=== PATIENT | male | born 1945 | race Caucasian/White ===

== ENCOUNTER 2019-12-12 20:13 | Inpatient (IN) ==
[2019-12-12] MEDS ORDERED: Isovue-370 500 ML BOTTLE IVP ONE (20:31)
[2019-12-12 21:24] LABS: Basophils % 0.5 %; Eosinophils % 0.2 %; Hematocrit 34.7 % (37.5-50.1); Hemoglobin 11.2 g/dL (12.9-16.9); Immature Granulocytes % 0.2 % (0-4); Lymphocytes # 1.1 K/mcL (0.6-4.6); Mean Corpuscular HGB Conc 32.3 g/dL (31.6-35.5); Mean Corpuscular Hemoglobin 31.1 pg (28.0-33.3); Mean Corpuscular Volume 96.4 fL (83.0-100.0); Monocytes # 0.4 K/mcL (0.0-1.3); Monocytes % 8.9 %; Neutrophils # 2.6 K/mcL (1.6-8.9); Platelet Count 167 K/mcL (140-400); Red Cell Distribution Width 15.1 % (11.5-14.5); Segmented Neutrophils % 63.2 %
[2019-12-12 21:28] LABS: INR 1.1; Prothrombin Time 12.7 Seconds (9.4-12.1)
[2019-12-12 21:31] LABS: Activated Partial Thrombo Time 24.5 Seconds (26.0-36.0)
[2019-12-12 21:49] LABS: Alanine Aminotransferase 21 Units/L (7-52); Albumin 3.3 g/dL (3.5-5.7); Albumin/Globulin Ratio 1.1 (1.1-2.2); Alkaline Phosphatase 58 Units/L (34-104); Aspartate Amino Transferase 49 Units/L (13-39); BUN/Creatinine Ratio 25 (6-26); Bilirubin,Direct 0.2 mg/dL (0.0-0.2); Bilirubin,Indirect 0.4 mg/dL (0.0-1.0); Bilirubin,Total 0.6 mg/dL (0.3-1.0); Blood Urea Nitrogen 24 mg/dL (8-23); C-Reactive Protein 69 mg/L (Less than 10); Calcium 8.2 mg/dL (8.6-10.3); Carbon Dioxide 27 mEq/L (23-29); Chloride 97 mEq/L (98-107); Globulin 3.1 g/dL (2.4-3.5); Glucose 88 mg/dL (70-105); Lactate Dehydrogenase 308 Units/L (140-271); Magnesium 1.9 mg/dL (1.6-2.6); Osmolality,Calculated 281 (280-300); Phosphorous 2.8 mg/dL (2.7-4.5); Potassium 3.7 mEq/L (3.5-5.1); Sodium 134 mEq/L (136-145); Total Protein 6.4 g/dL (6.4-8.9); Troponin I 0.06 ng/mL (< 0.04); eGFR For African Americans > 60 (> 60); eGFR For Non-African Americans > 60 (> 60)
[2019-12-12 22:09] LABS: Ferritin 482 ng/mL (20-250)
[2019-12-13] MEDS ORDERED: Naloxone 0.4 MG/ML INJ IVP PRN (02:20)
[2019-12-13] MEDS ORDERED: Ondansetron 4 MG/2 ML VIAL IVP PRN (02:20)
[2019-12-13] MEDS ORDERED: D5% in Water 1,000 ML IVC PRN (02:22)
[2019-12-13] MEDS ORDERED: Dextrose Gel 15 GM/37.5 ML TUBE PO PRN ×2 (02:22)
[2019-12-13] MEDS ORDERED: *HR* Dextrose 50 % in Water (Vial) 50 ML VIAL IVP PRN (02:22)
[2019-12-13] MEDS: *HR* Enoxaparin 40 MG/0.4 ML SYRINGE SQ SCH (05:27)
[2019-12-13] MEDS: Acetaminophen 325 MG TABLET PO PRN (05:27)
[2019-12-13] MEDS: Insulin LISPRO 300 UNITS/3 ML VIAL SQ SCH ×4 (08:39→21:04)
[2019-12-13] MEDS: Doxycycline 100 MG CAPSULE PO SCH ×2 (08:47→21:26)
[2019-12-13] MEDS: Magnesium Oxide 400 MG TABLET PO SCH (08:47)
[2019-12-13] MEDS: Pyridoxine (B-6) 50 MG TABLET PO SCH (08:47)
[2019-12-13] MEDS: Aspirin Enteric Coated 81 MG Tablet PO SCH (08:47)
[2019-12-13] MEDS: polyethylene glycoL 3350 17 GM POWD.PACK PO SCH (08:48)
[2019-12-13] MEDS: Dexamethasone 4 MG/ML VIAL IVP SCH (08:48)
[2019-12-13] MEDS: cefTRIAXone 1,000 MG in Water for inj. (sterile) 10 ML IVP SCH (08:49)
[2019-12-13] MEDS: *HR* OxyCODONE Immed Rel 5 MG TABLET PO PRN ×3 (08:52→21:40)
[2019-12-13] MEDS ORDERED: atenoloL 50 MG TABLET PO SCH (09:00)
[2019-12-13 10:38] LABS: Basophils % 0.3 %; Eosinophils % 0.8 %; Hemoglobin 11.3 g/dL (12.9-16.9); Immature Granulocytes % 0.3 % (0-4); Mean Corpuscular HGB Conc 32.3 g/dL (31.6-35.5); Mean Corpuscular Hemoglobin 30.9 pg (28.0-33.3); Mean Corpuscular Volume 95.6 fL (83.0-100.0); Mean Platelet Volume 8.9 fL (9.4-12.4); Monocytes # 0.3 K/mcL (0.0-1.3); Neutrophils # 2.3 K/mcL (1.6-8.9); Platelet Count 168 K/mcL (140-400); Red Blood Count 3.66 M/mcL (4.19-5.50); Red Cell Distribution Width 15.1 % (11.5-14.5); Segmented Neutrophils % 63.6 %; White Blood Count 3.7 K/mcL (4.3-11.1)
[2019-12-13 11:41] LABS: BUN/Creatinine Ratio 27 (6-26); Blood Urea Nitrogen 21 mg/dL (8-23); Calcium 8.3 mg/dL (8.6-10.3); Carbon Dioxide 28 mEq/L (23-29); Chloride 99 mEq/L (98-107); Glucose 112 mg/dL (70-105); Magnesium 2.3 mg/dL (1.6-2.6); Osmolality,Calculated 282 (280-300); Phosphorous 2.7 mg/dL (2.7-4.5); Potassium 3.6 mEq/L (3.5-5.1); Sodium 134 mEq/L (136-145); Troponin I 0.09 ng/mL (< 0.04); eGFR For African Americans > 60 (> 60); eGFR For Non-African Americans > 60 (> 60)
[2019-12-13] MEDS: tiZANidine 4 MG TABLET PO SCH ×2 (15:47→21:27)
[2019-12-13] MEDS: Insulin DETEMIR 100 UNIT/ML X5UNITS SQ SCH (22:08)
[2019-12-14] MEDS: *HR* Enoxaparin 40 MG/0.4 ML SYRINGE SQ SCH (05:48)
[2019-12-14] MEDS: Insulin LISPRO 300 UNITS/3 ML VIAL SQ SCH ×4 (08:00→20:40)
[2019-12-14 08:36] LABS: Basophils % 0.1 %; Eosinophils % 0.1 %; Hematocrit 37.5 % (37.5-50.1); Hemoglobin 11.9 g/dL (12.9-16.9); Immature Granulocytes % 0.3 % (0-4); Lymphocytes # 1.1 K/mcL (0.6-4.6); Lymphocytes % 16.2 %; Mean Corpuscular HGB Conc 31.7 g/dL (31.6-35.5); Mean Corpuscular Hemoglobin 30.7 pg (28.0-33.3); Mean Corpuscular Volume 96.9 fL (83.0-100.0); Mean Platelet Volume 9.4 fL (9.4-12.4); Monocytes # 0.4 K/mcL (0.0-1.3); Monocytes % 5.3 %; Nucleated Red Blood Cells 0.4 /100 WBC (0); Platelet Count 200 K/mcL (140-400); Red Blood Count 3.87 M/mcL (4.19-5.50); Red Cell Distribution Width 14.6 % (11.5-14.5)
[2019-12-14 08:40] LABS: Neutrophils # 5.2 K/mcL (1.6-8.9); White Blood Count 6.7 K/mcL (4.3-11.1)
[2019-12-14 08:52] LABS: BUN/Creatinine Ratio 32 (6-26); Blood Urea Nitrogen 24 mg/dL (8-23); Calcium 8.8 mg/dL (8.6-10.3); Carbon Dioxide 30 mEq/L (23-29); Chloride 101 mEq/L (98-107); Glucose 94 mg/dL (70-105); Osmolality,Calculated 290 (280-300); Potassium 4.3 mEq/L (3.5-5.1); Sodium 138 mEq/L (136-145); eGFR For African Americans > 60 (> 60); eGFR For Non-African Americans > 60 (> 60)
[2019-12-14] MEDS: Aspirin Enteric Coated 81 MG Tablet PO SCH (10:03)
[2019-12-14] MEDS: Pyridoxine (B-6) 50 MG TABLET PO SCH (10:04)
[2019-12-14] MEDS: tiZANidine 4 MG TABLET PO SCH ×2 (10:04→20:39)
[2019-12-14] MEDS: Doxycycline 100 MG CAPSULE PO SCH ×2 (10:04→20:39)
[2019-12-14] MEDS: Magnesium Oxide 400 MG TABLET PO SCH (10:05)
[2019-12-14] MEDS: cefTRIAXone 1,000 MG in Water for inj. (sterile) 10 ML IVP SCH (10:05)
[2019-12-14] MEDS: Dexamethasone 4 MG/ML VIAL IVP SCH (10:05)
[2019-12-14] MEDS: polyethylene glycoL 3350 17 GM POWD.PACK PO SCH (10:06)
[2019-12-14] MEDS: Insulin DETEMIR 100 UNIT/ML X5UNITS SQ SCH (20:38)
[2019-12-14] MEDS: *HR* OxyCODONE Immed Rel 5 MG TABLET PO PRN (21:08)
[2019-12-15] MEDS: *HR* Enoxaparin 40 MG/0.4 ML SYRINGE SQ SCH (05:26)
[2019-12-15 07:12] LABS: Basophils % 0.2 %; Hematocrit 38.7 % (37.5-50.1); Hemoglobin 12.6 g/dL (12.9-16.9); Immature Granulocytes % 0.3 % (0-4); Lymphocytes # 1.3 K/mcL (0.6-4.6); Lymphocytes % 20.6 %; Mean Corpuscular HGB Conc 32.6 g/dL (31.6-35.5); Mean Corpuscular Hemoglobin 31.3 pg (28.0-33.3); Mean Corpuscular Volume 96.3 fL (83.0-100.0); Mean Platelet Volume 9.1 fL (9.4-12.4); Monocytes # 0.3 K/mcL (0.0-1.3); Neutrophils # 4.7 K/mcL (1.6-8.9); Platelet Count 217 K/mcL (140-400); Red Blood Count 4.02 M/mcL (4.19-5.50); Red Cell Distribution Width 14.7 % (11.5-14.5); Segmented Neutrophils % 73.9 %; White Blood Count 6.4 K/mcL (4.3-11.1)
[2019-12-15 07:29] LABS: BUN/Creatinine Ratio 28 (6-26); Blood Urea Nitrogen 20 mg/dL (8-23); Calcium 9.2 mg/dL (8.6-10.3); Carbon Dioxide 30 mEq/L (23-29); Chloride 102 mEq/L (98-107); Glucose 84 mg/dL (70-105); Osmolality,Calculated 288 (280-300); Potassium 4.6 mEq/L (3.5-5.1); Sodium 138 mEq/L (136-145); eGFR For African Americans > 60 (> 60); eGFR For Non-African Americans > 60 (> 60)
[2019-12-15] MEDS: Insulin LISPRO 300 UNITS/3 ML VIAL SQ SCH ×4 (08:44→22:08)
[2019-12-15] MEDS: Doxycycline 100 MG CAPSULE PO SCH ×2 (09:51→22:10)
[2019-12-15] MEDS: Aspirin Enteric Coated 81 MG Tablet PO SCH (09:51)
[2019-12-15] MEDS: Pyridoxine (B-6) 50 MG TABLET PO SCH ×2 (09:52→22:16)
[2019-12-15] MEDS: tiZANidine 4 MG TABLET PO SCH ×2 (09:52→22:15)
[2019-12-15] MEDS: Magnesium Oxide 400 MG TABLET PO SCH ×2 (09:54→22:10)
[2019-12-15] MEDS: polyethylene glycoL 3350 17 GM POWD.PACK PO SCH (09:55)
[2019-12-15] MEDS: Dexamethasone 4 MG/ML VIAL IVP SCH (09:59)
[2019-12-15] MEDS: cefTRIAXone 1,000 MG in Water for inj. (sterile) 10 ML IVP SCH (10:00)
[2019-12-15] MEDS: Torsemide 20 MG TABLET PO SCH (17:00)
[2019-12-15] MEDS: Budesonide/Formoterol 160/4.5 1 PUFF INH IH SCH (20:45)
[2019-12-15] MEDS ORDERED: Insulin DETEMIR 100 UNIT/ML X5UNITS SQ SCH (21:00)
[2019-12-16] MEDS: *HR* OxyCODONE Immed Rel 5 MG TABLET PO PRN (03:32)
[2019-12-16] MEDS ORDERED: *HR* OxyCODONE Immed Rel 5 MG TABLET PO PRN (03:52)
[2019-12-16] MEDS: *HR* Enoxaparin 40 MG/0.4 ML SYRINGE SQ SCH (06:10)
[2019-12-16] MEDS: Budesonide/Formoterol 160/4.5 1 PUFF INH IH SCH ×2 (07:48→22:03)
[2019-12-16] MEDS: polyethylene glycoL 3350 17 GM POWD.PACK PO SCH (08:09)
[2019-12-16] MEDS: Insulin LISPRO 300 UNITS/3 ML VIAL SQ SCH ×4 (08:09→21:32)
[2019-12-16] MEDS: Cyanocobalamin (B-12) 1,000 MCG TABLET PO SCH (08:22)
[2019-12-16] MEDS: Venlafaxine XR (24 HR) 150 MG CAP.ER.24H PO SCH (08:22)
[2019-12-16] MEDS: Magnesium Oxide 400 MG TABLET PO SCH ×2 (08:22→21:42)
[2019-12-16] MEDS: Aspirin Enteric Coated 81 MG Tablet PO SCH (08:23)
[2019-12-16] MEDS: Pyridoxine (B-6) 50 MG TABLET PO SCH ×2 (08:23→21:42)
[2019-12-16] MEDS: Torsemide 20 MG TABLET PO SCH (08:23)
[2019-12-16] MEDS: Cholecalciferol (D-3) 1,000 UNIT (25MCG) TABLET PO SCH (08:23)
[2019-12-16] MEDS: Doxycycline 100 MG CAPSULE PO SCH ×2 (08:23→21:43)
[2019-12-16] MEDS: tiZANidine 4 MG TABLET PO SCH ×2 (08:24→21:42)
[2019-12-16] MEDS: cefTRIAXone 1,000 MG in Water for inj. (sterile) 10 ML IVP SCH (08:26)
[2019-12-16] MEDS: Dexamethasone 4 MG/ML VIAL IVP SCH (08:27)
[2019-12-16] MEDS ORDERED: Torsemide 20 MG TABLET PO SCH (09:00)
[2019-12-16 10:37] LABS: Basophils % 0.2 %; Hematocrit 40.1 % (37.5-50.1); Hemoglobin 13.2 g/dL (12.9-16.9); Immature Granulocytes % 0.5 % (0-4); Lymphocytes # 0.6 K/mcL (0.6-4.6); Lymphocytes % 9.2 %; Mean Corpuscular HGB Conc 32.9 g/dL (31.6-35.5); Mean Corpuscular Hemoglobin 30.9 pg (28.0-33.3); Mean Corpuscular Volume 93.9 fL (83.0-100.0); Mean Platelet Volume 9.1 fL (9.4-12.4); Monocytes # 0.3 K/mcL (0.0-1.3); Monocytes % 3.8 %; Neutrophils # 5.6 K/mcL (1.6-8.9); Platelet Count 274 K/mcL (140-400); Red Blood Count 4.27 M/mcL (4.19-5.50); Segmented Neutrophils % 86.3 %; White Blood Count 6.5 K/mcL (4.3-11.1)
[2019-12-16 10:57] LABS: BUN/Creatinine Ratio 26 (6-26); Blood Urea Nitrogen 23 mg/dL (8-23); Calcium 8.8 mg/dL (8.6-10.3); Carbon Dioxide 27 mEq/L (23-29); Chloride 98 mEq/L (98-107); Glucose 160 mg/dL (70-105); Osmolality,Calculated 289 (280-300); Sodium 136 mEq/L (136-145); eGFR For African Americans > 60 (> 60); eGFR For Non-African Americans > 60 (> 60)
[2019-12-17] MEDS: *HR* Enoxaparin 40 MG/0.4 ML SYRINGE SQ SCH (05:24)
[2019-12-17 06:32] LABS: BUN/Creatinine Ratio 33 (6-26); Blood Urea Nitrogen 33 mg/dL (8-23); Calcium 8.7 mg/dL (8.6-10.3); Carbon Dioxide 20 mEq/L (23-29); Chloride 99 mEq/L (98-107); Glucose 94 mg/dL (70-105); Osmolality,Calculated 285 (280-300); Potassium 4.8 mEq/L (3.5-5.1); Sodium 134 mEq/L (136-145); eGFR For African Americans > 60 (> 60); eGFR For Non-African Americans > 60 (> 60)
[2019-12-17 06:48] LABS: Basophils % 0.1 %; Hematocrit 44.1 % (37.5-50.1); Hemoglobin 14.6 g/dL (12.9-16.9); Immature Granulocytes % 0.7 % (0-4); Lymphocytes # 0.8 K/mcL (0.6-4.6); Lymphocytes % 10.8 %; Mean Corpuscular HGB Conc 33.1 g/dL (31.6-35.5); Mean Corpuscular Hemoglobin 31.3 pg (28.0-33.3); Mean Corpuscular Volume 94.6 fL (83.0-100.0); Monocytes # 0.4 K/mcL (0.0-1.3); Monocytes % 4.7 %; Neutrophils # 6.4 K/mcL (1.6-8.9); Platelet Count 284 K/mcL (140-400); Red Blood Count 4.66 M/mcL (4.19-5.50); Segmented Neutrophils % 83.7 %; White Blood Count 7.7 K/mcL (4.3-11.1)
[2019-12-17] MEDS: Budesonide/Formoterol 160/4.5 1 PUFF INH IH SCH ×2 (08:04→19:58)
[2019-12-17] MEDS: Insulin LISPRO 300 UNITS/3 ML VIAL SQ SCH ×4 (08:17→22:21)
[2019-12-17] MEDS: Cyanocobalamin (B-12) 1,000 MCG TABLET PO SCH (08:21)
[2019-12-17] MEDS: tiZANidine 4 MG TABLET PO SCH ×2 (08:21→22:20)
[2019-12-17] MEDS: Cholecalciferol (D-3) 1,000 UNIT (25MCG) TABLET PO SCH (08:21)
[2019-12-17] MEDS: Pyridoxine (B-6) 50 MG TABLET PO SCH ×2 (08:22→22:20)
[2019-12-17] MEDS: cefTRIAXone 1,000 MG in Water for inj. (sterile) 10 ML IVP SCH (08:22)
[2019-12-17] MEDS: Venlafaxine XR (24 HR) 150 MG CAP.ER.24H PO SCH (08:23)
[2019-12-17] MEDS: Doxycycline 100 MG CAPSULE PO SCH ×2 (08:23→22:21)
[2019-12-17] MEDS: Aspirin Enteric Coated 81 MG Tablet PO SCH (08:23)
[2019-12-17] MEDS: Magnesium Oxide 400 MG TABLET PO SCH ×2 (08:23→22:21)
[2019-12-17] MEDS: Torsemide 20 MG TABLET PO SCH (08:23)
[2019-12-17] MEDS: Dexamethasone 4 MG/ML VIAL IVP SCH (08:24)
[2019-12-17] MEDS: Insulin DETEMIR 100 UNIT/ML X5UNITS SQ SCH (08:25)
[2019-12-17] MEDS: polyethylene glycoL 3350 17 GM POWD.PACK PO SCH (08:58)
[2019-12-17] MEDS: Spironolactone 25 MG TABLET PO SCH (12:31)
[2019-12-17] MEDS: Furosemide 40 MG/4 ML VIAL IVP SCH (12:37)
[2019-12-17] MEDS: Melatonin 3 MG TABLET PO SCH (22:19)
[2019-12-18] MEDS: Budesonide/Formoterol 160/4.5 1 PUFF INH IH SCH ×2 (07:49→20:15)
[2019-12-18] MEDS: *HR* Enoxaparin 40 MG/0.4 ML SYRINGE SQ SCH (10:27)
[2019-12-18] MEDS: Aspirin Enteric Coated 81 MG Tablet PO SCH (10:28)
[2019-12-18] MEDS: Insulin LISPRO 300 UNITS/3 ML VIAL SQ SCH ×4 (10:28→21:50)
[2019-12-18] MEDS: Spironolactone 25 MG TABLET PO SCH (10:28)
[2019-12-18] MEDS: Venlafaxine XR (24 HR) 150 MG CAP.ER.24H PO SCH (10:29)
[2019-12-18] MEDS: Magnesium Oxide 400 MG TABLET PO SCH ×2 (10:30→21:54)
[2019-12-18] MEDS: polyethylene glycoL 3350 17 GM POWD.PACK PO SCH (10:30)
[2019-12-18] MEDS: Cholecalciferol (D-3) 1,000 UNIT (25MCG) TABLET PO SCH (10:31)
[2019-12-18] MEDS: tiZANidine 4 MG TABLET PO SCH ×2 (10:31→21:53)
[2019-12-18] MEDS: Pyridoxine (B-6) 50 MG TABLET PO SCH ×2 (10:31→21:54)
[2019-12-18] MEDS: Multivit/Ca/Min/Fe/FA 1 TAB TABLET PO SCH (10:31)
[2019-12-18] MEDS: Cyanocobalamin (B-12) 1,000 MCG TABLET PO SCH (10:31)
[2019-12-18] MEDS: Insulin DETEMIR 100 UNIT/ML X5UNITS SQ SCH (11:09)
[2019-12-18] MEDS: Furosemide 40 MG/4 ML VIAL IVP SCH (11:15)
[2019-12-18] MEDS: Dexamethasone 4 MG/ML VIAL IVP SCH (11:15)
[2019-12-18 14:16] LABS: Basophils % 0.1 %; Hematocrit 41.2 % (37.5-50.1); Hemoglobin 13.7 g/dL (12.9-16.9); Immature Granulocytes % 0.5 % (0-4); Lymphocytes # 0.6 K/mcL (0.6-4.6); Lymphocytes % 7.4 %; Mean Corpuscular HGB Conc 33.3 g/dL (31.6-35.5); Mean Corpuscular Hemoglobin 31.6 pg (28.0-33.3); Mean Corpuscular Volume 95.2 fL (83.0-100.0); Mean Platelet Volume 9.1 fL (9.4-12.4); Monocytes # 0.3 K/mcL (0.0-1.3); Monocytes % 3.5 %; Neutrophils # 7.1 K/mcL (1.6-8.9); Platelet Count 332 K/mcL (140-400); Red Blood Count 4.33 M/mcL (4.19-5.50); Red Cell Distribution Width 14.6 % (11.5-14.5); Segmented Neutrophils % 88.5 %
[2019-12-18 14:39] LABS: BUN/Creatinine Ratio 38 (6-26); Blood Urea Nitrogen 39 mg/dL (8-23); Calcium 8.7 mg/dL (8.6-10.3); Carbon Dioxide 28 mEq/L (23-29); Chloride 96 mEq/L (98-107); Glucose 171 mg/dL (70-105); Magnesium 2.4 mg/dL (1.6-2.6); Osmolality,Calculated 291 (280-300); Potassium 4.2 mEq/L (3.5-5.1); Sodium 134 mEq/L (136-145); eGFR For African Americans > 60 (> 60); eGFR For Non-African Americans > 60 (> 60)
[2019-12-18] MEDS: Melatonin 3 MG TABLET PO SCH (21:54)
[2019-12-18] MEDS ORDERED: 0.9 % Sodium Chloride 250 ML ONE (23:26)
[2019-12-19 03:37] LABS: Basophils % 0.1 %; Hematocrit 38.9 % (37.5-50.1); Hemoglobin 12.5 g/dL (12.9-16.9); Immature Granulocytes % 0.7 % (0-4); Lymphocytes # 0.7 K/mcL (0.6-4.6); Lymphocytes % 9.3 %; Mean Corpuscular HGB Conc 32.1 g/dL (31.6-35.5); Mean Corpuscular Hemoglobin 30.7 pg (28.0-33.3); Mean Corpuscular Volume 95.6 fL (83.0-100.0); Mean Platelet Volume 9.2 fL (9.4-12.4); Monocytes # 0.3 K/mcL (0.0-1.3); Neutrophils # 6.5 K/mcL (1.6-8.9); Platelet Count 312 K/mcL (140-400); Red Blood Count 4.07 M/mcL (4.19-5.50); Red Cell Distribution Width 14.7 % (11.5-14.5); Segmented Neutrophils % 85.9 %; White Blood Count 7.5 K/mcL (4.3-11.1)
[2019-12-19 03:54] LABS: BUN/Creatinine Ratio 40 (6-26); Blood Urea Nitrogen 36 mg/dL (8-23); Calcium 8.9 mg/dL (8.6-10.3); Carbon Dioxide 32 mEq/L (23-29); Chloride 96 mEq/L (98-107); Glucose 120 mg/dL (70-105); Osmolality,Calculated 294 (280-300); Potassium 4.2 mEq/L (3.5-5.1); Sodium 137 mEq/L (136-145); eGFR For African Americans > 60 (> 60); eGFR For Non-African Americans > 60 (> 60)
[2019-12-19] MEDS: *HR* Enoxaparin 40 MG/0.4 ML SYRINGE SQ SCH (05:50)
[2019-12-19 07:46] LABS: Magnesium 2.7 mg/dL (1.6-2.6)
[2019-12-19] MEDS: Insulin LISPRO 300 UNITS/3 ML VIAL SQ SCH ×4 (07:47→20:22)
[2019-12-19] MEDS: tiZANidine 4 MG TABLET PO SCH ×2 (07:48→20:28)
[2019-12-19] MEDS: Pyridoxine (B-6) 50 MG TABLET PO SCH ×2 (07:48→20:27)
[2019-12-19] MEDS: Dexamethasone 4 MG/ML VIAL IVP SCH (07:48)
[2019-12-19] MEDS: polyethylene glycoL 3350 17 GM POWD.PACK PO SCH (07:48)
[2019-12-19] MEDS: Multivit/Ca/Min/Fe/FA 1 TAB TABLET PO SCH (07:48)
[2019-12-19] MEDS: Aspirin Enteric Coated 81 MG Tablet PO SCH (07:48)
[2019-12-19] MEDS: Venlafaxine XR (24 HR) 150 MG CAP.ER.24H PO SCH (07:48)
[2019-12-19] MEDS: Cholecalciferol (D-3) 1,000 UNIT (25MCG) TABLET PO SCH (07:48)
[2019-12-19] MEDS: Magnesium Oxide 400 MG TABLET PO SCH (07:48)
[2019-12-19] MEDS: Cyanocobalamin (B-12) 1,000 MCG TABLET PO SCH (07:49)
[2019-12-19] MEDS: Spironolactone 25 MG TABLET PO SCH (07:49)
[2019-12-19] MEDS: Furosemide 40 MG/4 ML VIAL IVP SCH ×2 (07:49→20:29)
[2019-12-19] MEDS: Insulin DETEMIR 100 UNIT/ML X5UNITS SQ SCH (07:50)
[2019-12-19] MEDS: Budesonide/Formoterol 160/4.5 1 PUFF INH IH SCH ×2 (11:06→20:12)
[2019-12-19 13:19] LABS: Fibrinogen 538 mg/dL (169-393)
[2019-12-19 13:22] LABS: D-Dimer 2149 ng/mLFEU (0-500)
[2019-12-19] MEDS: Melatonin 3 MG TABLET PO SCH (20:28)
[2019-12-19] MEDS: *HR* OxyCODONE Immed Rel 5 MG TABLET PO PRN (21:33)
[2019-12-20 03:44] LABS: Basophils % 0.1 %; Eosinophils % 0.2 %; Hematocrit 41.4 % (37.5-50.1); Hemoglobin 13.5 g/dL (12.9-16.9); Immature Granulocytes % 0.5 % (0-4); Lymphocytes # 0.7 K/mcL (0.6-4.6); Lymphocytes % 6.2 %; Mean Corpuscular HGB Conc 32.6 g/dL (31.6-35.5); Mean Platelet Volume 8.9 fL (9.4-12.4); Monocytes # 0.3 K/mcL (0.0-1.3); Monocytes % 3.1 %; Neutrophils # 9.5 K/mcL (1.6-8.9); Platelet Count 357 K/mcL (140-400); Red Blood Count 4.36 M/mcL (4.19-5.50); Red Cell Distribution Width 13.8 % (11.5-14.5); Segmented Neutrophils % 89.9 %; White Blood Count 10.5 K/mcL (4.3-11.1)
[2019-12-20 03:52] LABS: BUN/Creatinine Ratio 37 (6-26); Blood Urea Nitrogen 34 mg/dL (8-23); Carbon Dioxide 34 mEq/L (23-29); Chloride 96 mEq/L (98-107); Glucose 105 mg/dL (70-105); Magnesium 2.3 mg/dL (1.6-2.6); Osmolality,Calculated 284 (280-300); Potassium 4.1 mEq/L (3.5-5.1); Sodium 133 mEq/L (136-145); eGFR For African Americans > 60 (> 60); eGFR For Non-African Americans > 60 (> 60)
[2019-12-20] MEDS ORDERED: *HR* Metoprolol 5 MG/5 ML VIAL IVP ONE (04:53)
[2019-12-20 05:10] LABS: Phosphorous 3.2 mg/dL (2.7-4.5)
[2019-12-20] MEDS: *HR* Enoxaparin 40 MG/0.4 ML SYRINGE SQ SCH (06:30)
[2019-12-20] MEDS: Budesonide/Formoterol 160/4.5 1 PUFF INH IH SCH ×3 (07:47→21:57)
[2019-12-20] MEDS: Insulin LISPRO 300 UNITS/3 ML VIAL SQ SCH ×4 (08:00→22:36)
[2019-12-20] MEDS: Aspirin Enteric Coated 81 MG Tablet PO SCH (08:07)
[2019-12-20] MEDS: Azithromycin 250 MG TABLET PO SCH (08:07)
[2019-12-20] MEDS: Multivit/Ca/Min/Fe/FA 1 TAB TABLET PO SCH (08:07)
[2019-12-20] MEDS: Spironolactone 25 MG TABLET PO SCH (08:07)
[2019-12-20] MEDS: Cyanocobalamin (B-12) 1,000 MCG TABLET PO SCH (08:07)
[2019-12-20] MEDS: Cholecalciferol (D-3) 1,000 UNIT (25MCG) TABLET PO SCH (08:07)
[2019-12-20] MEDS: tiZANidine 4 MG TABLET PO SCH ×2 (08:08→21:30)
[2019-12-20] MEDS: Venlafaxine XR (24 HR) 150 MG CAP.ER.24H PO SCH (08:08)
[2019-12-20] MEDS: Pyridoxine (B-6) 50 MG TABLET PO SCH ×2 (08:08→21:30)
[2019-12-20] MEDS: Dexamethasone 4 MG/ML VIAL IVP SCH (08:08)
[2019-12-20] MEDS: polyethylene glycoL 3350 17 GM POWD.PACK PO SCH (08:10)
[2019-12-20] MEDS: Furosemide 40 MG/4 ML VIAL IVP SCH ×2 (08:10→21:29)
[2019-12-20] MEDS: Insulin DETEMIR 100 UNIT/ML X5UNITS SQ SCH (08:11)
[2019-12-20] MEDS: Ipratropium 1 PUFF INHALER IH SCH ×3 (16:19→21:56)
[2019-12-20] MEDS: Melatonin 3 MG TABLET PO SCH (21:29)
[2019-12-20] MEDS: *HR* OxyCODONE Immed Rel 5 MG TABLET PO PRN (21:55)
[2019-12-21 02:56] LABS: Basophils % 0.1 %; Eosinophils % 0.1 %; Hematocrit 39.2 % (37.5-50.1); Hemoglobin 13.1 g/dL (12.9-16.9); Immature Granulocytes % 0.7 % (0-4); Lymphocytes # 0.8 K/mcL (0.6-4.6); Lymphocytes % 7.2 %; Mean Corpuscular HGB Conc 33.4 g/dL (31.6-35.5); Mean Corpuscular Hemoglobin 32.2 pg (28.0-33.3); Mean Corpuscular Volume 96.3 fL (83.0-100.0); Mean Platelet Volume 9.2 fL (9.4-12.4); Monocytes # 0.4 K/mcL (0.0-1.3); Monocytes % 3.2 %; Neutrophils # 10.4 K/mcL (1.6-8.9); Platelet Count 408 K/mcL (140-400); Red Blood Count 4.07 M/mcL (4.19-5.50); Red Cell Distribution Width 14.2 % (11.5-14.5); Segmented Neutrophils % 88.7 %; White Blood Count 11.7 K/mcL (4.3-11.1)
[2019-12-21 03:10] LABS: BUN/Creatinine Ratio 46 (6-26); Blood Urea Nitrogen 45 mg/dL (8-23); Calcium 9.1 mg/dL (8.6-10.3); Carbon Dioxide 30 mEq/L (23-29); Chloride 96 mEq/L (98-107); Glucose 98 mg/dL (70-105); Magnesium 2.5 mg/dL (1.6-2.6); Osmolality,Calculated 294 (280-300); Potassium 4.4 mEq/L (3.5-5.1); Sodium 136 mEq/L (136-145); eGFR For African Americans > 60 (> 60); eGFR For Non-African Americans > 60 (> 60)
[2019-12-21] MEDS: Ipratropium 1 PUFF INHALER IH SCH ×4 (04:00→20:30)
[2019-12-21] MEDS: *HR* Enoxaparin 40 MG/0.4 ML SYRINGE SQ SCH (05:43)
[2019-12-21] MEDS: tiZANidine 4 MG TABLET PO SCH ×2 (07:49→22:07)
[2019-12-21] MEDS: Aspirin Enteric Coated 81 MG Tablet PO SCH (07:49)
[2019-12-21] MEDS: Cyanocobalamin (B-12) 1,000 MCG TABLET PO SCH (07:49)
[2019-12-21] MEDS: Multivit/Ca/Min/Fe/FA 1 TAB TABLET PO SCH (07:49)
[2019-12-21] MEDS: Venlafaxine XR (24 HR) 150 MG CAP.ER.24H PO SCH (07:49)
[2019-12-21] MEDS: Azithromycin 250 MG TABLET PO SCH (07:50)
[2019-12-21] MEDS: Pyridoxine (B-6) 50 MG TABLET PO SCH ×2 (07:50→22:07)
[2019-12-21] MEDS: Cholecalciferol (D-3) 1,000 UNIT (25MCG) TABLET PO SCH (07:50)
[2019-12-21] MEDS: Furosemide 40 MG/4 ML VIAL IVP SCH ×2 (07:51→22:05)
[2019-12-21] MEDS: Insulin DETEMIR 100 UNIT/ML X5UNITS SQ SCH (07:51)
[2019-12-21] MEDS: polyethylene glycoL 3350 17 GM POWD.PACK PO SCH (07:51)
[2019-12-21] MEDS: Dexamethasone 4 MG/ML VIAL IVP SCH (07:51)
[2019-12-21] MEDS: Insulin LISPRO 300 UNITS/3 ML VIAL SQ SCH ×4 (08:21→21:56)
[2019-12-21] MEDS: Budesonide/Formoterol 160/4.5 1 PUFF INH IH SCH ×2 (10:14→20:30)
[2019-12-21] MEDS: Melatonin 3 MG TABLET PO SCH (22:07)
[2019-12-21] MEDS: *HR* OxyCODONE Immed Rel 5 MG TABLET PO PRN (22:08)
[2019-12-22] MEDS: Haloperidol Lactate 5 MG/ML VIAL IVP PRN ×2 (00:20→05:37)
[2019-12-22] MEDS: Ipratropium 1 PUFF INHALER IH SCH ×4 (03:57→21:41)
[2019-12-22] MEDS: *HR* Enoxaparin 40 MG/0.4 ML SYRINGE SQ SCH (05:37)
[2019-12-22] MEDS ORDERED: *HR* Metoprolol 5 MG/5 ML VIAL IVP ONE (08:24)
[2019-12-22] MEDS: Metoprolol XL (24 HR) Succ 25 MG TAB.ER.24H PO SCH ×3 (08:33→16:17)
[2019-12-22] MEDS: Cyanocobalamin (B-12) 1,000 MCG TABLET PO SCH (08:37)
[2019-12-22] MEDS: Furosemide 40 MG/4 ML VIAL IVP SCH (08:38)
[2019-12-22] MEDS: Multivit/Ca/Min/Fe/FA 1 TAB TABLET PO SCH (08:39)
[2019-12-22] MEDS: Venlafaxine XR (24 HR) 150 MG CAP.ER.24H PO SCH (08:39)
[2019-12-22] MEDS: Cholecalciferol (D-3) 1,000 UNIT (25MCG) TABLET PO SCH (08:39)
[2019-12-22] MEDS: Aspirin Enteric Coated 81 MG Tablet PO SCH (08:39)
[2019-12-22] MEDS: tiZANidine 4 MG TABLET PO SCH ×2 (08:39→20:41)
[2019-12-22] MEDS: Pyridoxine (B-6) 50 MG TABLET PO SCH ×2 (08:39→20:41)
[2019-12-22] MEDS: Azithromycin 250 MG TABLET PO SCH (08:40)
[2019-12-22] MEDS: Dexamethasone 4 MG/ML VIAL IVP SCH (08:40)
[2019-12-22] MEDS: polyethylene glycoL 3350 17 GM POWD.PACK PO SCH (08:40)
[2019-12-22] MEDS: Insulin DETEMIR 100 UNIT/ML X5UNITS SQ SCH (08:42)
[2019-12-22] MEDS: Insulin LISPRO 300 UNITS/3 ML VIAL SQ SCH ×4 (08:44→20:34)
[2019-12-22] MEDS: *HR* HYDROmorphone (PF) 1 MG/ML SYRINGE IVP PRN (08:48)
[2019-12-22] MEDS ORDERED: Spironolactone 25 MG TABLET PO SCH (09:00)
[2019-12-22 09:01] LABS: Basophils % 0.1 %; Eosinophils % 0.1 %; Hematocrit 40.2 % (37.5-50.1); Hemoglobin 13.9 g/dL (12.9-16.9); Immature Granulocytes % 0.7 % (0-4); Lymphocytes # 0.4 K/mcL (0.6-4.6); Lymphocytes % 2.4 %; Mean Corpuscular HGB Conc 34.6 g/dL (31.6-35.5); Mean Corpuscular Hemoglobin 33.4 pg (28.0-33.3); Mean Corpuscular Volume 96.6 fL (83.0-100.0); Mean Platelet Volume 9.2 fL (9.4-12.4); Monocytes # 0.3 K/mcL (0.0-1.3); Monocytes % 2.1 %; Neutrophils # 14.1 K/mcL (1.6-8.9); Platelet Count 461 K/mcL (140-400); Red Blood Count 4.16 M/mcL (4.19-5.50); Red Cell Distribution Width 14.2 % (11.5-14.5); Segmented Neutrophils % 94.6 %; White Blood Count 14.9 K/mcL (4.3-11.1)
[2019-12-22 09:16] LABS: D-Dimer 2372 ng/mLFEU (0-500)
[2019-12-22] MEDS: Budesonide/Formoterol 160/4.5 1 PUFF INH IH SCH ×2 (09:49→21:44)
[2019-12-22] MEDS ORDERED: Acetaminophen IV 1,000 MG/100 ML INFUS..BTL IVPB ONE (10:36)
[2019-12-22 10:46] LABS: Fibrinogen 716 mg/dL (169-393)
[2019-12-22] MEDS ORDERED: *HR* Heparin 5,000 UNIT/ML VIAL IVP PRN ×2 (10:59)
[2019-12-22] MEDS ORDERED: *HR* Heparin 5,000 UNIT/ML VIAL IVP ONE (10:59)
[2019-12-22] MEDS: Heparin 25,000UNIT/250ML 1/2NS 25,000 UNIT/250 ML IV.SOLN IVC SCH (11:48)
[2019-12-22] MEDS: cefTRIAXone 1,000 MG in Water for inj. (sterile) 10 ML IVP SCH (11:52)
[2019-12-22 12:26] LABS: Calcium 9.1 mg/dL (8.6-10.3); Magnesium 2.6 mg/dL (1.6-2.6); Potassium 5.1 mEq/L (3.5-5.1)
[2019-12-22 12:43] LABS: Heparin anti-factor XA UFH 0.22 IU/mL (0.30-0.70); INR 1.3; Prothrombin Time 15.1 Seconds (9.4-12.1)
[2019-12-22 12:44] LABS: Activated Partial Thrombo Time 25.1 Seconds (26.0-36.0)
[2019-12-22 13:04] LABS: Hematocrit 36.6 % (37.5-50.1); Hemoglobin 12.5 g/dL (12.9-16.9); Mean Corpuscular HGB Conc 34.2 g/dL (31.6-35.5); Mean Corpuscular Hemoglobin 33.5 pg (28.0-33.3); Mean Corpuscular Volume 98.1 fL (83.0-100.0); Mean Platelet Volume 9.3 fL (9.4-12.4); Platelet Count 416 K/mcL (140-400); Red Blood Count 3.73 M/mcL (4.19-5.50); Red Cell Distribution Width 14.5 % (11.5-14.5); White Blood Count 14.8 K/mcL (4.3-11.1)
[2019-12-22] MEDS: Acetaminophen 325 MG TABLET PO PRN (15:23)
[2019-12-22] MEDS: Melatonin 3 MG TABLET PO SCH (20:40)
[2019-12-23] MEDS: Ipratropium 1 PUFF INHALER IH SCH ×4 (03:34→22:15)
[2019-12-23 05:21] LABS: Basophils % 0.1 %; Eosinophils % 0.1 %; Hemoglobin 12.4 g/dL (12.9-16.9); Immature Granulocytes % 0.4 % (0-4); Lymphocytes # 0.5 K/mcL (0.6-4.6); Lymphocytes % 3.2 %; Mean Corpuscular HGB Conc 36.5 g/dL (31.6-35.5); Mean Corpuscular Hemoglobin 35.9 pg (28.0-33.3); Mean Corpuscular Volume 98.6 fL (83.0-100.0); Mean Platelet Volume 9.1 fL (9.4-12.4); Monocytes # 0.3 K/mcL (0.0-1.3); Monocytes % 1.8 %; Neutrophils # 15.7 K/mcL (1.6-8.9); Platelet Count 449 K/mcL (140-400); Red Blood Count 3.45 M/mcL (4.19-5.50); Red Cell Distribution Width 14.9 % (11.5-14.5); Segmented Neutrophils % 94.4 %; White Blood Count 16.7 K/mcL (4.3-11.1)
[2019-12-23 05:35] LABS: D-Dimer 1318 ng/mLFEU (0-500); Fibrinogen 740 mg/dL (169-393)
[2019-12-23 05:42] LABS: BUN/Creatinine Ratio 62 (6-26); Blood Urea Nitrogen 71 mg/dL (8-23); Calcium 8.9 mg/dL (8.6-10.3); Carbon Dioxide 33 mEq/L (23-29); Chloride 95 mEq/L (98-107); Glucose 99 mg/dL (70-105); Osmolality,Calculated 305 (280-300); Sodium 137 mEq/L (136-145); eGFR For African Americans > 60 (> 60); eGFR For Non-African Americans > 60 (> 60)
[2019-12-23] MEDS: Insulin LISPRO 300 UNITS/3 ML VIAL SQ SCH ×4 (08:13→23:28)
[2019-12-23] MEDS: Cholecalciferol (D-3) 1,000 UNIT (25MCG) TABLET PO SCH (08:18)
[2019-12-23] MEDS: Metoprolol XL (24 HR) Succ 25 MG TAB.ER.24H PO SCH (08:18)
[2019-12-23] MEDS: polyethylene glycoL 3350 17 GM POWD.PACK PO SCH (08:18)
[2019-12-23] MEDS: cefTRIAXone 1,000 MG in Water for inj. (sterile) 10 ML IVP SCH (08:18)
[2019-12-23] MEDS: Dexamethasone 4 MG/ML VIAL IVP SCH (08:19)
[2019-12-23] MEDS: Insulin DETEMIR 100 UNIT/ML X5UNITS SQ SCH (08:19)
[2019-12-23] MEDS: Cyanocobalamin (B-12) 1,000 MCG TABLET PO SCH (08:19)
[2019-12-23] MEDS: Venlafaxine XR (24 HR) 150 MG CAP.ER.24H PO SCH (08:19)
[2019-12-23] MEDS: tiZANidine 4 MG TABLET PO SCH ×2 (08:19→19:57)
[2019-12-23] MEDS: Pyridoxine (B-6) 50 MG TABLET PO SCH ×2 (08:19→19:58)
[2019-12-23] MEDS: Multivit/Ca/Min/Fe/FA 1 TAB TABLET PO SCH (08:19)
[2019-12-23] MEDS: Aspirin Enteric Coated 81 MG Tablet PO SCH (08:19)
[2019-12-23] MEDS: Budesonide/Formoterol 160/4.5 1 PUFF INH IH SCH ×2 (10:14→22:17)
[2019-12-23] MEDS: Piperacillin/Tazobactam 3.375 GM in 0.9 % Sodium Chloride Mini Bag 100 ML IVPB SCH ×2 (11:48→17:18)
[2019-12-23] MEDS: Heparin 25,000UNIT/250ML 1/2NS 25,000 UNIT/250 ML IV.SOLN IVC SCH (17:17)
[2019-12-23] MEDS ORDERED: Doxycycline 100 MG in 0.9 % Sodium Chloride Mini Bag 100 ML IVPB SCH (18:00)
[2019-12-23] MEDS: Melatonin 3 MG TABLET PO SCH (19:57)
[2019-12-23] MEDS: Lactobacillus 1 EACH CAP.SPRINK PO SCH (19:57)
[2019-12-23] MEDS: Doxycycline 100 MG CAPSULE PO SCH (19:57)
[2019-12-23] MEDS: Furosemide 40 MG/4 ML VIAL IVP SCH (20:15)
[2019-12-24] MEDS: Piperacillin/Tazobactam 3.375 GM in 0.9 % Sodium Chloride Mini Bag 100 ML IVPB SCH ×3 (01:19→17:24)
[2019-12-24] MEDS: Ipratropium 1 PUFF INHALER IH SCH ×4 (03:45→22:00)
[2019-12-24] MEDS: *HR* HYDROmorphone (PF) 1 MG/ML SYRINGE IVP PRN (03:53)
[2019-12-24 06:03] LABS: Basophils % 0.1 %; Hemoglobin 13.3 g/dL (12.9-16.9); Immature Granulocytes % 0.7 % (0-4); Lymphocytes # 0.4 K/mcL (0.6-4.6); Lymphocytes % 2.1 %; Mean Corpuscular HGB Conc 36.9 g/dL (31.6-35.5); Mean Corpuscular Hemoglobin 37.6 pg (28.0-33.3); Mean Corpuscular Volume 101.7 fL (83.0-100.0); Mean Platelet Volume 9.3 fL (9.4-12.4); Monocytes # 0.4 K/mcL (0.0-1.3); Monocytes % 1.9 %; Neutrophils # 18.6 K/mcL (1.6-8.9); Platelet Count 507 K/mcL (140-400); Red Blood Count 3.54 M/mcL (4.19-5.50); Red Cell Distribution Width 16.2 % (11.5-14.5); Segmented Neutrophils % 95.2 %; White Blood Count 19.5 K/mcL (4.3-11.1)
[2019-12-24 06:21] LABS: BUN/Creatinine Ratio 52 (6-26); Blood Urea Nitrogen 61 mg/dL (8-23); Calcium 9.3 mg/dL (8.6-10.3); Carbon Dioxide 31 mEq/L (23-29); Chloride 99 mEq/L (98-107); Glucose 126 mg/dL (70-105); Osmolality,Calculated 307 (280-300); Potassium 4.7 mEq/L (3.5-5.1); Sodium 139 mEq/L (136-145); eGFR For African Americans > 60 (> 60); eGFR For Non-African Americans > 60 (> 60)
[2019-12-24 07:07] LABS: Fibrinogen 766 mg/dL (169-393)
[2019-12-24] MEDS: Insulin LISPRO 300 UNITS/3 ML VIAL SQ SCH ×4 (07:42→20:40)
[2019-12-24] MEDS: Venlafaxine XR (24 HR) 150 MG CAP.ER.24H PO SCH (07:50)
[2019-12-24] MEDS: Cholecalciferol (D-3) 1,000 UNIT (25MCG) TABLET PO SCH (07:50)
[2019-12-24] MEDS: tiZANidine 4 MG TABLET PO SCH ×2 (07:50→19:24)
[2019-12-24] MEDS: Doxycycline 100 MG CAPSULE PO SCH ×2 (07:50→19:24)
[2019-12-24] MEDS: Pyridoxine (B-6) 50 MG TABLET PO SCH ×2 (07:50→19:24)
[2019-12-24] MEDS: Multivit/Ca/Min/Fe/FA 1 TAB TABLET PO SCH (07:50)
[2019-12-24] MEDS: Lactobacillus 1 EACH CAP.SPRINK PO SCH ×2 (07:50→19:25)
[2019-12-24] MEDS: Cyanocobalamin (B-12) 1,000 MCG TABLET PO SCH (07:50)
[2019-12-24] MEDS: Metoprolol XL (24 HR) Succ 25 MG TAB.ER.24H PO SCH (07:50)
[2019-12-24] MEDS: Aspirin Enteric Coated 81 MG Tablet PO SCH (07:51)
[2019-12-24] MEDS: Furosemide 40 MG/4 ML VIAL IVP SCH (07:51)
[2019-12-24] MEDS: polyethylene glycoL 3350 17 GM POWD.PACK PO SCH (07:52)
[2019-12-24] MEDS: *HR* Enoxaparin 40 MG/0.4 ML SYRINGE SQ SCH (07:52)
[2019-12-24 08:57] LABS: D-Dimer 1764 ng/mLFEU (0-500)
[2019-12-24] MEDS ORDERED: Dexamethasone 4 MG/ML VIAL IVP SCH (09:00)
[2019-12-24] MEDS: Budesonide/Formoterol 160/4.5 1 PUFF INH IH SCH ×2 (10:06→22:00)
[2019-12-24] MEDS: Dexmedetomidine HCl 400 MCG/100 ML MLS IVC SCH (11:33)
[2019-12-24] MEDS: Melatonin 3 MG TABLET PO SCH (19:25)
[2019-12-25] MEDS: Piperacillin/Tazobactam 3.375 GM in 0.9 % Sodium Chloride Mini Bag 100 ML IVPB SCH ×2 (01:10→10:49)
[2019-12-25] MEDS: Ipratropium 1 PUFF INHALER IH SCH ×4 (03:22→15:05)
[2019-12-25 07:33] LABS: INR 1.4; Prothrombin Time 16.4 Seconds (9.4-12.1)
[2019-12-25] MEDS: Insulin LISPRO 300 UNITS/3 ML VIAL SQ SCH ×2 (07:53→12:39)
[2019-12-25 08:04] LABS: Alanine Aminotransferase 16 Units/L (7-52); Albumin 2.9 g/dL (3.5-5.7); Albumin/Globulin Ratio 0.7 (1.1-2.2); Alkaline Phosphatase 107 Units/L (34-104); Aspartate Amino Transferase 29 Units/L (13-39); BUN/Creatinine Ratio 51 (6-26); Bilirubin,Total 1.4 mg/dL (0.3-1.0); Blood Urea Nitrogen 78 mg/dL (8-23); Calcium 9.1 mg/dL (8.6-10.3); Carbon Dioxide 29 mEq/L (23-29); Chloride 102 mEq/L (98-107); Globulin 4.3 g/dL (2.4-3.5); Glucose 127 mg/dL (70-105); Lactate Dehydrogenase 479 Units/L (140-271); Osmolality,Calculated 323 (280-300); Phosphorous 3.9 mg/dL (2.7-4.5); Potassium 3.9 mEq/L (3.5-5.1); Sodium 144 mEq/L (136-145); Total Protein 7.2 g/dL (6.4-8.9); eGFR For African Americans 55 (> 60); eGFR For Non-African Americans 45 (> 60)
[2019-12-25] MEDS: Multivit/Ca/Min/Fe/FA 1 TAB TABLET PO SCH (08:21)
[2019-12-25] MEDS: Aspirin Enteric Coated 81 MG Tablet PO SCH (08:21)
[2019-12-25] MEDS: tiZANidine 4 MG TABLET PO SCH (08:21)
[2019-12-25] MEDS: Lactobacillus 1 EACH CAP.SPRINK PO SCH (08:21)
[2019-12-25] MEDS: Doxycycline 100 MG CAPSULE PO SCH (08:21)
[2019-12-25] MEDS: Metoprolol XL (24 HR) Succ 25 MG TAB.ER.24H PO SCH (08:22)
[2019-12-25] MEDS: Cyanocobalamin (B-12) 1,000 MCG TABLET PO SCH (08:22)
[2019-12-25] MEDS: Cholecalciferol (D-3) 1,000 UNIT (25MCG) TABLET PO SCH (08:22)
[2019-12-25] MEDS: Pyridoxine (B-6) 50 MG TABLET PO SCH (08:22)
[2019-12-25] MEDS: Venlafaxine XR (24 HR) 150 MG CAP.ER.24H PO SCH (08:22)
[2019-12-25] MEDS: *HR* Enoxaparin 40 MG/0.4 ML SYRINGE SQ SCH (08:23)
[2019-12-25] MEDS: polyethylene glycoL 3350 17 GM POWD.PACK PO SCH (08:38)
[2019-12-25 08:48] LABS: Basophils % 0.1 %; Hematocrit 40.6 % (37.5-50.1); Hemoglobin 12.8 g/dL (12.9-16.9); Immature Granulocytes % 0.6 % (0-4); Lymphocytes # 0.4 K/mcL (0.6-4.6); Lymphocytes % 1.8 %; Mean Corpuscular HGB Conc 31.5 g/dL (31.6-35.5); Mean Corpuscular Volume 98.3 fL (83.0-100.0); Mean Platelet Volume 9.6 fL (9.4-12.4); Monocytes # 0.3 K/mcL (0.0-1.3); Monocytes % 1.3 %; Platelet Count 359 K/mcL (140-400); Red Blood Count 4.13 M/mcL (4.19-5.50); Red Cell Distribution Width 15.2 % (11.5-14.5); Segmented Neutrophils % 96.2 %; White Blood Count 20.8 K/mcL (4.3-11.1)
[2019-12-25 08:58] LABS: Ferritin > 1500 ng/mL (20-250)
[2019-12-25] MEDS ORDERED: Furosemide 40 MG/4 ML VIAL IVP SCH (09:00)
[2019-12-25] MEDS ORDERED: Dexamethasone 4 MG/ML VIAL IVP SCH (09:00)
[2019-12-25] MEDS: Dexmedetomidine HCl 400 MCG/100 ML MLS IVC SCH (09:31)
[2019-12-25 09:48] LABS: C-Reactive Protein 170 mg/L (Less than 10)
[2019-12-25] MEDS: Budesonide/Formoterol 160/4.5 1 PUFF INH IH SCH (11:45)
[2019-12-25 11:57] VITALS: BP 106/68
[2019-12-25] MEDS ORDERED: *HR* FentaNYL (PF) 100 MCG/2 ML VIAL IVP ONE (13:39)
[2019-12-25] MEDS ORDERED: *HR* Enoxaparin 40 MG/0.4 ML SYRINGE SQ SCH (21:00)
[2019-12-26] MEDS ORDERED: *HR* Enoxaparin 40 MG/0.4 ML SYRINGE SQ SCH (06:00)
== END 2019-12-25 14:04 | disposition expired | DRG 177 ==
LOC: EMEROOARM 20:13 → 2NENU 20:13 → SUATTDRO 12-14 13:48 → 2NENU 12-14 23:07
PROVIDERS: ADMIT Family Medicine; ATTEND Internal Medicine